=== PATIENT | female | born 1955 | race African-American/Black ===

== ENCOUNTER → 2017-03-19 | Outpatient (CLI) | payer OTHER ==
--- NOTE | ~2017-03-19 | CT55 ---
[facility] A Service of [facility] RADIOLOGY TEXT RESULTS PATIENT: KRISTINA CAREY LOCATION: [facility] : 59 UNIT #: [id number] AGE: [address]: Rolan Ren MD SEX: F ORDER DR: [id number] [facility] [address] [place], [place] [address] [id number] O MR#: [id number] Acc #: [id number] NAME: KRISTINA CAREY : 1955 SEX: F STUDY DATE/TIME: 03/19/2017 11:23 UNIT: [facility] ROOM: STUDY DESCRIPTION: CT Chest W Con Attending Physician: Rolan Ren M.D. Referring Physician: Rolan Ren M.D. Ordering Physician: Rolan Ren M.D. Primary Care Physician: Tammie Herr M.D. MEDICAL IMAGING REPORT This report is preliminary unless electronic signature is present EXAM CT chest with contrast INDICATION Lymphadenopathy. Followup. Patient reports chest pain and shortness of air for the past year. PROCEDURE Contrast-enhanced CT of the chest. This CT exam was performed with one or more of the following radiation dose reduction techniques: automatic exposure control, adjustment of mA and/or kV according to patient size, and iterative reconstruction. COMPARISON 09/23/2016 FINDINGS No dense consolidation or suspicious pulmonary nodule. Slight interval increase in focal bronchiectasis in the medial right and left lung base. Precarinal node measures 9.0 mm short axis dimension. AP window node measures 10.0 mm short axis dimension, both are slightly decreased in size from the previous study. Small bilateral hilar lymph nodes are very similar. No new adenopathy. No acute findings in the included upper abdomen. No aggressive appearing bone lesion. IMPRESSION 1. No acute findings. 2. Mediastinal and hilar adenopathy. Mediastinal nodes are slightly smaller than on the previous study and most likely benign. 3. Slight interval increase in bronchiectasis in the medial right and left lung base of uncertain etiology. [facility] A Service of [facility] RADIOLOGY TEXT RESULTS PATIENT: KRISTINA CAREY LOCATION: [facility] : 59 UNIT #: [id number] AGE: [address]: Rolan Ren MD SEX: F ORDER DR: Dictated by... Derrick Angel M.D. THIS IS AN ELECTRONICALLY VERIFIED REPORT Derrick Angel M.D. at 03/24/2017 8:18 AM Mike TD: 03/20/2017 08:51 JOB #: [id number] MEDICAL IMAGING REPORT Page 1 of 1 COPY
[2017-03-20 06:51] LABS: POC - CREATININE 1.14 mg/dL (0.44-1.03); POC - GFR >60.0 mL/min (>60)
== END | disposition home or self-care (01) ==
LOC: CCAT 09:29
PROVIDERS: Internal Medicine Hematology
DX: R59.1 Generalized enlarged lymph nodes (principal); R59.0 Localized enlarged lymph nodes; J47.9 Bronchiectasis, uncomplicated
CPT/HCPCS: 71260; 82565; Q9967